=== PATIENT | female | born 1955 | race Caucasian/White ===

== ENCOUNTER → 2022-07-10 13:17 | Outpatient (BNVA) | payer MEDICARE, MEDICAID, SELFPAY | PROVIDERS: Family Provider Family Medicine; PCP Family Medicine; Visit Provider Internal Medicine Cardiovascular Disease | DX: I48.91 Unspecified atrial fibrillation (principal); Z79.01 Long term (current) use of anticoagulants; I34.0 Nonrheumatic mitral (valve) insufficiency; I50.9 Heart failure, unspecified; K75.4 Autoimmune hepatitis; F41.9 Anxiety disorder, unspecified; F32.A Depression, unspecified | CPT/HCPCS: 93005; 99204; Q3014 ==

== ENCOUNTER → 2022-11-11 14:04 | Outpatient (BNVA) | payer MEDICARE, MEDICAID, SELFPAY | PROVIDERS: Family Provider Family Medicine; PCP Family Medicine; Visit Provider Internal Medicine Cardiovascular Disease | DX: I11.0 Hypertensive heart disease with heart failure (principal); I50.9 Heart failure, unspecified; I48.91 Unspecified atrial fibrillation; I34.0 Nonrheumatic mitral (valve) insufficiency; Z79.01 Long term (current) use of anticoagulants | CPT/HCPCS: 99214 ==

== ENCOUNTER → 2024-08-18 07:40 | Outpatient (BNVA) | payer MEDICARE, MEDICAID, SELFPAY | PROVIDERS: Family Provider Family Medicine; PCP Family Medicine; Referring Provider Nurse Practitioner Family; Visit Provider Internal Medicine | DX: E21.3 Hyperparathyroidism, unspecified (principal); F41.9 Anxiety disorder, unspecified; F32.A Depression, unspecified; K75.4 Autoimmune hepatitis; I34.0 Nonrheumatic mitral (valve) insufficiency; I48.91 Unspecified atrial fibrillation; I50.9 Heart failure, unspecified; E55.9 Vitamin D deficiency, unspecified; E21.0 Primary hyperparathyroidism; R79.89 Other specified abnormal findings of blood chemistry | CPT/HCPCS: 99204 ==

== ENCOUNTER → 2024-11-17 08:55 | Outpatient (BNVA) | payer MEDICARE, MEDICAID, SELFPAY | PROVIDERS: Family Provider Family Medicine; PCP Family Medicine; Referring Provider Nurse Practitioner Family; Visit Provider Internal Medicine | DX: R79.89 Other specified abnormal findings of blood chemistry (principal); E21.0 Primary hyperparathyroidism; M81.0 Age-related osteoporosis without current pathological fracture | CPT/HCPCS: 99214 ==

== ENCOUNTER → 2025-02-23 08:15 | Outpatient (BNVA) | payer MEDICARE, MEDICAID, SELFPAY | PROVIDERS: Family Provider Family Medicine; PCP Family Medicine; Referring Provider Nurse Practitioner Family; Visit Provider Internal Medicine | DX: E21.0 Primary hyperparathyroidism (principal); R79.89 Other specified abnormal findings of blood chemistry; M81.0 Age-related osteoporosis without current pathological fracture; Z95.1 Presence of aortocoronary bypass graft; K74.5 Biliary cirrhosis, unspecified; K75.4 Autoimmune hepatitis; Z98.890 Other specified postprocedural states | CPT/HCPCS: 80053; 82306; 82310; 83970; 99214 ==